=== PATIENT | female | born 1970 | race Caucasian/White ===

== ENCOUNTER 2020-09-01 15:40 | Outpatient (REF) | payer OTHER, SELFPAY ==
--- NOTE | 2020-09-01 | MM_ITS ---
EXAMINATION: MM SCREENING DIGITAL BREAST TOMOSYNTHESIS, BILATERAL CLINICAL INFORMATION: Screening. Asymptomatic. The lifetime risk of breast cancer based on the Tyrer-Cuzick Model is 14%. COMPARISON: Mammography: 07/25/2019, 06/27/2018, 05/23/2017, 03/01/2016 TECHNIQUE: Digital breast tomosynthesis is performed in both the craniocaudal and mediolateral oblique views along with computer-aided detection (CAD). Synthesized 2D images are generated from the tomosynthesis. FINDINGS: There are scattered areas of fibroglandular density (ACR BI-RADS breast composition Category b). Parenchymal pattern is similar to prior studies. There are no significant changes. No interval mass or architectural abnormality or abnormal calcifications. The axilla and skin contours are unremarkable. MM/MM tomosynthesis screening BI IMPRESSION: No mammographic evidence of malignancy. ASSESSMENT: BI-RADS 1: Negative RECOMMENDATION: Routine annual mammography screening. This patient's information was entered into a reminder system with a target due date for their next mammogram.
== END 2020-09-01 15:41 | disposition home or self-care (01) ==
LOC: HO.MAMMO 15:40
PROVIDERS: PCP Internal Medicine; Visit Provider Internal Medicine
DX: Z12.31 Encounter for screening mammogram for malignant neoplasm of breast (principal)
CPT/HCPCS: 77063; 77067

== ENCOUNTER 2020-10-15 11:02 | Outpatient (REF) | payer SELFPAY ==
[2020-10-15 12:24] LABS: Cholesterol 222 mg/dL
== END 2020-10-15 11:03 | disposition home or self-care (01) ==
LOC: HO.LNC 11:02
PROVIDERS: Visit Provider Pathology Anatomic Pathology & Clinical Pathology
DX: Z13.89 Encounter for screening for other disorder (principal)
CPT/HCPCS: 82465

== ENCOUNTER 2021-10-05 15:45 | Outpatient (REF) | payer OTHER, SELFPAY ==
--- NOTE | ~2021-10-05 | MM_ITS ---
EXAMINATION: MM SCREENING DIGITAL BREAST TOMOSYNTHESIS, BILATERAL CLINICAL INFORMATION: Screening. Asymptomatic. The lifetime risk of breast cancer based on the Tyrer-Cuzick Model is 15%. COMPARISON: Mammography: 09/01/2020, 07/25/2019, 06/27/2018 TECHNIQUE: Digital breast tomosynthesis is performed in both the craniocaudal and mediolateral oblique views along with computer-aided detection (CAD). Synthesized 2D images are generated from the tomosynthesis. Additional left CC view is provided. FINDINGS: There are scattered areas of fibroglandular density (ACR BI-RADS breast composition Category b). There are no significant masses, abnormal calcifications, or other abnormalities. MM/MM tomosynthesis screening BI IMPRESSION: No mammographic evidence of malignancy. ASSESSMENT: BI-RADS 1: Negative RECOMMENDATION: Routine annual mammography screening. This patient's information was entered into a reminder system with a target due date for their next mammogram.
== END 2021-10-05 15:46 | disposition home or self-care (01) ==
LOC: HO.MAMMO 15:45
PROVIDERS: PCP Internal Medicine; Visit Provider Internal Medicine
DX: Z12.31 Encounter for screening mammogram for malignant neoplasm of breast (principal)
CPT/HCPCS: 77063; 77067

== ENCOUNTER 2022-01-01 06:19 | Outpatient (REF) | payer OTHER, SELFPAY ==
[2022-01-01 11:40] LABS: MANUAL DIFF FLAG NO
[2022-01-01 11:51] LABS: Basophils Percent Auto 0.8 % (0-2); Eosinophils Absolute Auto 0.2 X10*3/uL (0.0-0.4); Hematocrit 43.3 % (37.0-47.0); Hemoglobin 13.3 g/dl (12.0-16.0); Imm Gran Abs Auto 0.02 X10*3/uL (0.00-0.03); Imm Gran Pct Auto 0.4 % (0.0-0.4); Mean Corpuscular HGB Conc 30.7 g/dl (31.0-35.0); Mean Corpuscular Hemoglobin 25.5 pg (27.0-33.0); Mean Platelet Volume 10.6 fL (9.4-12.3); Monocytes Absolute Auto 0.5 X10*3/uL (0.1-1.2); Monocytes Percent Auto 9.4 % (2-11); Neutrophils Absolute Auto 2.1 x10*3/uL (2.0-8.3); Neutrophils Percent Auto 44.4 % (45-73); Platelet Count 340 X10*3/uL (160-400); Red Blood Count 5.22 X10*6/uL (4.20-5.50); Red Cell Distribution Width 14.4 % (11.0-16.0); White Blood Count 4.8 X10*3/uL (4.8-10.8)
[2022-01-01 12:32] LABS: Alanine Aminotransferase 12 U/L (0-31); Alkaline Phosphatase 78 U/L (39-117); Anion Gap 10 (12-20); Aspartate Amino Transferase 16 U/L (5-31); Bilirubin Total 0.6 mg/dL (0.0-1.0); Blood Urea Nitrogen 8 mg/dL (9-16); Calcium 9.1 mg/dL (8.4-10.2); Carbon Dioxide 27 mmol/L (22-29); Chloride 106 mmol/L (96-108); Cholesterol 221 mg/dL; Estimated Glomerular Filt Rate > 60; Glucose Fasting 91 mg/dL (60-99); HDL Cholesterol 55 mg/dL; LDL Cholesterol Calculated 149 mg/dl; Potassium 4.1 mmol/L (3.3-5.1); Sodium 139 mmol/L (135-145); Total Protein 6.8 g/dL (6.5-8.0); Triglycerides 89 mg/dL
[2022-01-01 12:37] LABS: Thyroid Stimulating Hormone 0.87 uIU/mL (0.32-4.0)
== END 2022-01-01 06:20 | disposition home or self-care (01) ==
LOC: HO.HMGCLDS 06:19
PROVIDERS: Visit Provider Internal Medicine
DX: Z00.00 Encounter for general adult medical examination without abnormal findings (principal)
CPT/HCPCS: 36415; 80053; 80061; 84443; 85025

== ENCOUNTER 2022-10-26 15:34 | Outpatient (REF) | payer OTHER, SELFPAY ==
--- NOTE | ~2022-10-26 | MM_ITS ---
EXAMINATION: MM SCREENING DIGITAL BREAST TOMOSYNTHESIS, BILATERAL CLINICAL INFORMATION: Screening. Asymptomatic. The lifetime risk of breast cancer based on the Tyrer-Cuzick Model is 15%. COMPARISON: Mammography: 10/05/2021, 09/01/2020, 07/25/2019 TECHNIQUE: Digital breast tomosynthesis is performed in both the craniocaudal and mediolateral oblique views along with computer-aided detection (CAD). Synthesized 2D images are generated from the tomosynthesis. FINDINGS: There are scattered areas of fibroglandular density (ACR BI-RADS breast composition Category b). There are no significant masses, abnormal calcifications, or other abnormalities. Parenchymal pattern is similar to prior studies. There is no developing density or architectural abnormality. The axilla and skin contours are unremarkable. No significant changes. MM/MM tomosynthesis screening BI IMPRESSION: No mammographic evidence of malignancy. ASSESSMENT: BI-RADS 1: Negative RECOMMENDATION: Routine annual mammography screening. This patient's information was entered into a reminder system with a target due date for their next mammogram.
== END 2022-10-26 15:35 | disposition home or self-care (01) ==
LOC: HO.MAMMO 15:34
PROVIDERS: PCP Internal Medicine; Visit Provider Internal Medicine
DX: Z12.31 Encounter for screening mammogram for malignant neoplasm of breast (principal)
CPT/HCPCS: 77063; 77067

== ENCOUNTER → 2023-10-31 15:00 | Outpatient (BNV) | payer OTHER, SELFPAY | PROVIDERS: PCP Internal Medicine; Visit Provider Radiology Diagnostic Radiology | DX: Z12.31 Encounter for screening mammogram for malignant neoplasm of breast (principal) | CPT/HCPCS: 77063; 77067 ==

== ENCOUNTER 2023-10-31 15:01 | Outpatient (REF) | payer OTHER, SELFPAY | END 2023-10-31 15:02 | disposition home or self-care (01) | LOC: HO.MAMMO 15:01 | PROVIDERS: PCP Internal Medicine; Visit Provider Internal Medicine | DX: Z12.31 Encounter for screening mammogram for malignant neoplasm of breast (principal) | CPT/HCPCS: 77063; 77067 ==

== ENCOUNTER 2024-09-17 14:40 | Outpatient (REF) | payer OTHER, SELFPAY | END 2024-09-17 14:41 | disposition home or self-care (01) | LOC: HO.LNP 14:40 | PROVIDERS: Visit Provider Internal Medicine | DX: L02.511 Cutaneous abscess of right hand (principal) | CPT/HCPCS: 87070; 87205 ==

== ENCOUNTER 2024-09-25 10:13 | Outpatient (REF) | payer OTHER, SELFPAY | END 2024-09-25 10:14 | disposition home or self-care (01) | LOC: HO.HOSX 10:13 | PROVIDERS: Visit Provider Orthopaedic Surgery | DX: M79.641 Pain in right hand (principal) | CPT/HCPCS: 73130 ==

== ENCOUNTER 2024-09-25 13:45 | Outpatient (AMB) | payer OTHER, SELFPAY ==
--- NOTE | 2024-09-25 14:08 | MHC.OFFVIS ---
Vital Signs 09/25/24 14:10 Height 5 ft 2 in Weight 145 lb BMI 26.5 Intake Visit Reasons: [employer]-Right hand cyst reocurrance, drained 09/17/24 Intake Note: Mandi 54 yr old right hand dominant female presents today for a new patient visit for her right hand evaluation. States she has had a bump on her hand for the last 5 years. It hasn't bothered her until recently. She was experiencing stabbing pain and tenderness. States she has good ROM in her fingers and is able to fully open her hand with no pain. Seen with her PCP who attempted to aspirate bump. States the following day she notice pus again and she picked at it until it was drained out. She was told in the past this might be dupuytren's contracture but it was not bothersome at the time. Allergies No Known Allergies Allergy (Verified 09/25/24 14:10) HPI HPI [employer]-Right hand cyst reocurrance, drained 09/17/24: Details: Mandi is a 54 year old right hand dominant woman who presents with complaints of a right hand mass. She complains of a mass on the volar aspect of her right hand. She says this has been present for ~5 years now, and was non-painful. She says she developed pain & tenderness a few months ago. It started itching so she started scratching it and rubbing it. About a week ago she noticed tender mass filled with yellow purulence. She reports her PCP attempting an aspiration of this mass on 09/17/24. She says the next day she noticed pus draining from her mass, and she picked at the mass until this was actively draining pus. She was also placed on doxycycline, and believes that the wound is healing and feeling better. 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 Review of Systems Const All systems reviewed & are unremarkable except as noted in HPI and below Physical Exam Vital Signs: BMI result Body Mass Index 26.5 Const General: cooperative, healthy appearing and no acute distress Orientation/consciousness: patient oriented x3 HEENT Head: Yes normocephalic and Yes atraumatic Eyes EOM: EOMs intact bilaterally Resp Effort & Inspection: normal respiratory effort and able to speak in complete sentences Cardio Jugular venous distension: no JVD Skin General skin exam: turgor normal Rashes: no rashes Neuro General: patient oriented x3 Extrem Other: Evaluation of Right Upper Extremity: The patient is alert, oriented, and in no acute distress Neuro: Median, Ulnar, Radial nerves motor and sensory intact Vascular: Cap refill brisk ROM: She can make a fist and extend all her digits No locking or catching No contractures Skin: No lacerations or abrasions. General: No Ecchymosis. No Erythema Dupuytrens cord in line with right ring finger, no contracture Superficial abscess over the proximal aspect of dupuytrens cord proximal to the mid palmar crease Some fullness just proximal to the mid-palmar crease, but not tender. There is a healing patch of ~1cm of skin, associated with where the abscess was, proximal to the mid palmar crease. This is no longer tender. No drainage. Microbiology 09/17/24 Gram stain Final 09/17/24-1606 Gram stain results: 4+ polys 1+ epithelial cells 2+ Gram-positive cocci Routine Culture Final 09/20/24-1110 Organism 1 Corynebacterium species Quantity 1+ Susc N/A Susceptibility not routinely performed on this isolate. Radiographs: 3 views of the right hand were taken and viewed by me today in clinic. They show no fractures, dislocations, or evidence of arthritic changes. Psych Appearance: grossly normal Affect: normal affect Attitude: cooperative Assessment & Plan Assessment & Plan (1) Dupuytren's disease of palm of right hand: Code(s): M72.0 - Palmar fascial fibromatosis [Dupuytren] Category: Medical (2) Abscess of right hand: Code(s): L02.511 - Cutaneous abscess of right hand Category: Medical Plan Assessment & Plan: 1. Right hand Dupuytrens In line with the ring finger, with no evidence of contracture 2. Right and superficial abscess, S/P aspiration Located over the proximal aspect of the Dupuytrens cord Aspiration done by PCP on 09/17/24 No recurrence of abscess. Appears to be improving on antibiotics. Grew out ?Corynebacterium species I educated her about these conditions I explained the signs and symptoms of infection, if the patient develops any new or worsening erythema, drainage, pain, or warmth they should contact the clinic or attend the ED. She should continue her Abx as instructed. I ordered an additional 7-day course of PO Doxycycline for her to take Discussed proper wound care, I recommend a warm saltwater soak daily for the next week I directed her to the [email or web address] website for more information on Dupuytren's diseases Otherwise she will follow up in 6-8 weeks to see how she is doing, and discuss her Dupuytren's cord. Scribed for Cherise Velasquez MD by Fermin Gee, certified ophthalmic medical technician, on 09/25/24 at 2:40 PM, EST. Orders: Orders XR hand RT min 3V Today M79.641 - Pain in right hand Medications: New doxycycline hyclate 100 mg PO BID 14 tabs 0RF Coding Level of Care Code New Pt Level 4 (32383) Diagnoses Dupuytren's disease of palm of right hand M72.0 Abscess of right hand L02.511
[2024-09-25 14:10] VITALS: BMI 26.5
== END 2024-09-25 14:50 | disposition home or self-care (01) ==
PROVIDERS: PCP Internal Medicine; Visit Provider Orthopaedic Surgery
DX: M72.0 Palmar fascial fibromatosis [Dupuytren] (principal); L02.511 Cutaneous abscess of right hand
CPT/HCPCS: 99204

== ENCOUNTER 2024-11-21 14:57 | Outpatient (REF) | payer OTHER, SELFPAY | END 2024-11-21 14:58 | disposition home or self-care (01) | LOC: HO.MAMMO 14:57 | PROVIDERS: PCP Internal Medicine; Visit Provider Internal Medicine | DX: Z12.31 Encounter for screening mammogram for malignant neoplasm of breast (principal) | CPT/HCPCS: 77063; 77067 ==

== ENCOUNTER → 2024-11-21 15:15 | Outpatient (BNV) | payer OTHER, SELFPAY | PROVIDERS: PCP Internal Medicine; Visit Provider Internal Medicine | DX: Z12.31 Encounter for screening mammogram for malignant neoplasm of breast (principal) | CPT/HCPCS: 77063; 77067 ==

== ENCOUNTER 2025-03-29 06:09 | Outpatient (REF) | payer OTHER, SELFPAY ==
[2025-03-29 12:59] LABS: Alanine Aminotransferase 19 U/L (0-31); Albumin Level 3.7 g/dL (3.5-5.0); Alkaline Phosphatase 54 U/L (39-117); Aspartate Amino Transferase 24 U/L (5-31); Bilirubin Direct 0.2 mg/dL (0.0-0.5); Bilirubin Total 0.4 mg/dL (0.0-1.0); Total Protein 6.4 g/dL (6.5-8.0)
== END 2025-03-29 06:10 | disposition home or self-care (01) ==
LOC: HO.HMGCLDS 06:09
PROVIDERS: Visit Provider Physician Assistant
DX: R10.9 Unspecified abdominal pain (principal)
CPT/HCPCS: 36415; 80076